=== PATIENT | female | born 1945 | race African-American/Black ===

== ENCOUNTER 2020-02-25 09:13 | Emergency (ER) | payer OTHER ==
[~2020-02-25] VITALS: Ht 157.5 cm; Wt 81.7 kg
[2020-02-25] MEDS ORDERED: LOSARTAN POTAS100 MG PO (10:26)
[2020-02-25] MEDS ORDERED: ATORVASTATIN CA80 MG PO (10:27)
[2020-02-25] MEDS ORDERED: AMLODIPINE BESY10 MG PO (10:27)
[2020-02-25] MEDS ORDERED: CARVEDILOL25 MG PO (10:28)
[2020-02-25] MEDS ORDERED: CLONIDINE HCL0.2 M2 PO (10:28)
[2020-02-25] MEDS ORDERED: HYDRALAZINE 5050 MG PO (10:30)
[2020-02-25 12:24] LABS: ABSOLUTE NEUTROPHILS 2.6 thou/uL (1.4-8.2); BASOPHILS 0.9 % (0.0-2.0); EOSINOPHILS 4.1 % (0.0-3.0); HEMATOCRIT 39.1 % (37.0-47.0); MCH 29.5 pg (26.0-34.0); MCHC 33.3 g/dL (28.0-37.0); MCV 88.6 fL (80.0-100.0); MONOCYTES 8.3 % (1.0-8.0); POLYS 54.7 % (36.0-66.0); RBC 4.42 mil/uL (4.20-5.00); RDW 13.1 % (10.5-14.5); WBC 4.7 thou/uL (4.0-11.0)
[2020-02-25 12:39] LABS: CALCIUM 10.7 mg/dL (8.5-10.1); CREATININE 0.9 mg/dL (0.6-1.0); POTASSIUM 4.3 mmol/L (3.5-5.1)
[2020-02-25 13:00] LABS: ALBUMIN 3.6 g/dL (3.4-5.0); DIRECT BILIRUBIN 0.1 mg/dL (<0.1-0.2); MAGNESIUM 1.7 mg/dL (1.8-2.4); TOTAL BILIRUBIN 0.7 mg/dL (0.2-1.0); TOTAL PROTEIN 7.4 g/dL (6.4-8.2)
[2020-02-25 13:23] LABS: PLATELET COUNT 114 thou/uL (150-400)
[2020-02-25] MEDS ORDERED: MECLIZINE HCL25 MG PO (15:56)
[2020-02-25 16:10] VITALS: BP 125/56
--- NOTE | 2020-02-26 10:54 | EKG ---
[facility] [place] [address] ELECTROCARDIOGRAM REPORT Name: RAUL FLOREZ Room #: DEP [facility]#: [id number] Admission: 02/25/20 Attend Phys: Discharge: 02/25/20 Date of : 45 Report #: [id number] THIS REPORT FOR: cc: FAM - Family physician unknown FAM - Family physician unknown Kwame Webb MD [facility] THIS REPORT FOR: //name// [facility] ED Test Date: 2020-02-25 Test Time: 09:28:57 Pat Name: RAUL FLOREZ Department: Room: Gender: Facility Designer: [place] : 1945 Requested By: Robyn Renae Order Number: [id number] MD: Kwame Webb Measurements Intervals [place] Rate: 56 P: 0 NC: 291 QRS: 6 QRSD: 88 T: -84 QT: 424 QTc: 410 Interpretive Statements Sinus rhythm Prolonged NC interval Left ventricular hypertrophy with repolarization abnormality No previous ECG available for comparison Electronically Signed On 02-26-2020 10:54:23 CDT by Kwame Webb [email or web address] <ELECTRONICALLY SIGNED> By: Kwame Webb MD, FAC 02/26/20 1054 7 Kwame Webb MD, [facility] /EPI
== END 2020-02-25 16:19 | disposition home or self-care (01) ==
LOC: ER 09:13
PROVIDERS: Emergency Medicine
DX: R42 Dizziness and giddiness (principal); I10 Essential (primary) hypertension; Z79.899 Other long term (current) drug therapy